=== PATIENT | male | born 1950 | race Caucasian/White ===

== ENCOUNTER 2024-12-27 12:38 | Outpatient (CLI) | payer MEDICARE, SELFPAY ==
--- OUTSIDE RECORDS SUMMARY | 2024-12-27 12:43 | XMS_ITS | Clinical Summary ---
Author Organization [facility] [employer] Address [address] [place] [address] Care Team Providers Care Family Court Counsellor Name Role Phone Misael Singh MD Primary Care Provide r Source Comments [facility] [employer],non-owned Affiliates and Associated Physician Practices is amultiple site organization consisting of ambulatory clinics and hospital sitesin [place], [place], [place] and [place]. This disclosure is being madepursuant to the Care Everywhere program and may not contain all information available regarding this patient. Last updated 18.[facility] [employer] Allergies No known active allergies Medications * Be aware that medications may not be up to date on this document. Alwaysverify current medications with the patient. esomeprazole (NEXIUM) 40 MG capsule Take 40 mg by mouth daily before breakfast Active levothyroxine (SYNTHROID) 125 MCG tablet Take 125 mcg by mouth daily before breakfast Active Active Problems Problem Noted Date Diagnosed Date GERD (gastroesophageal reflux disease) 5 Social History Tobacco Use Types Packs/Day Years Used Date Smoking Tobacco: Former Cigarettes Q uit: 05/05/2002 Smokeless Tobacco: Never Alcohol Use Standard Drinks/Week Comments Yes 0 (1 standard drink = 0.6 oz pur e alcohol) moderately Sex and Gender Information Value Date Recorded Sex Assigned at Not on file Legal Sex Male 2:02 PM CDT Gender Identity Not on file Sexual Orientation Not on file Last Filed Vital Signs Vital Sign Reading Time Taken Comments Blood Pressure 136/89 01/03/2015 2:37 PM CDT Pulse 64 01/03/2015 2:38 PM CDT Temperature 36.7 C (98 F) 01/03/2015 12:44 PM CDT Respiratory Rate 18 01/03/2015 2:38 PM CDT Oxygen Saturation 91% 01/03/2015 2:38 PM CDT Inhaled Oxygen Concentration - - Weight 88.5 kg (195 lb) 01/03/2015 12:44 PM CDT Height 185.4 cm (6' 1) 01/03/2015 12:44 PM CDT Body Mass Index 25.73 01/03/2015 12:44 PM CDT Plan of Treatment Health Maintenance Due Date Last Done Comments COLOGUARD (AGES 45-75) - COLON CA SCREENING 1950 CT COLONOGRAPHY - COLON CA SCREENING 1950 FIT - COLON CA SCREENING 1950 FLEX SIG - COLON CA SCREENING 1950 LIPID TESTING 1950 HEPATITIS C SCREENING 04/17/1969 DTAP/TDAP/TD VACCINES (1 - Tdap) 1970 PNEUMOCOCCAL VACCINE 50+ (1 of 1 - PCV) 2001 ZOSTER VACCINE (1 of 2) 2001 AAA SCREENING 2016 COLON MONITORING 01/04/2020 01/03/2015, 05/2014, 01/03/2015, Additional history exists Colorectal Cancer Screening 01/04/2020 COVID-19 VACCINE ( - 2023- season) 2024 DEPRESSION SCREENING 05/05/2024 COLONOSCOPY - COLON CA SCREENING 01/03/2025 01/03/2015, 01/03/2015, 01/03/2015, Additional history exists INFLUENZA VACCINE (#1) 2025 Respiratory Syncytial Virus (RSV) Vaccine Pt: or over 60 yrs (1 - 1-dose 75+ series) 2026 HEPATITIS B VACCINE Aged Out No longe r eligible based on patient's age to complete this topic HIB VACCINE Aged Out No longer eligi ble based on patient's age to complete this topic HPV VACCINE Aged Out No longer eligi ble based on patient's age to complete this topic MENINGOCOCCAL (Group B) VACCINE SHARED DECISION-MAKING Aged Out No longer eligible based on patient's age to complete this topic MENINGOCOCCAL GROUPS A/C/Y/W VACCINE Aged Out No longer eligible based on patient's age to complete this topic Procedures Procedure Name Priority Date/Time Associated Diagnosis Comments ENDOSCOPY, COLON, SCREENING Routine 01/03/2015 1:53 PM CDT from Last 3 Months or Most Recently Relevant to Health Maintenance Results * ENDOSCOPY, COLON, SCREENING (01/03/2015 1:53 PM CDT) Report Endoscopy POC _ Patient Name: Elder Beckham Procedure Date: 01/03/2015 1:53 PM Date of : 1950 Admit Type: Outpatient Age: 64 Gender: Male Attending MD: Solomon Dukes MD _ Procedure: Colonoscopy Indications: Screening for colorectal malignant neoplasm Providers: Solomon Dukes MD (Doctor), Vicky Varghese Medicines: Monitored Anesthesia Care Complications: No immediate complications. _ Procedure: Pre-Anesthesia Assessment: - ASA Grade Assessment: II - A patient with mild systemic disease. - Airway Examination: Mallampati Class I (tonsillar pillars visualized). After I obtained informed consent, the scope was passed under direct vision. Throughout the procedure, the patient's blood pressure, pulse, and oxygen saturations were monitored continuously. The Colonoscope was introduced through the anus and advanced to the cecum, identified by appendiceal orifice and ileocecal valve. The colonoscopy was performed without difficulty. The patient tolerated the procedure well. The quality of the bowel preparation was good. Impression: - Diverticulosis. - One 7 mm polyp in the transverse colon. Resected and retrieved. Clips were placed. - One 6 mm polyp in the sigmoid colon. Resected and retrieved. Findings: Diverticula were found in the colon. A sessile polyp was found in the transverse colon. The polyp was 7 mm in size. The polyp was removed with a hot snare. Resection and retrieval were complete. To prevent bleeding post-intervention, two hemostatic clips were successfully placed. There was no bleeding at the end of the maneuver. A sessile polyp was found in the sigmoid colon. The polyp was 6 mm in size. The polyp was removed with a cold biopsy forceps. Resection and retrieval were complete. Estimated blood loss: none. _ Recommendation: - Repeat colonoscopy in 5 years for surveillance based on pathology results. Procedure Code(s): --- Professional --- 55153, Colonoscopy, flexible, proximal to splenic flexure; with removal of tumor(s), polyp(s), or other lesion(s) by snare technique [id number], 59, Colonoscopy, flexible, proximal to splenic flexure; with biopsy, single or multiple --- Technical --- 97277, Colonoscopy, flexible, proximal to splenic flexure; with removal of tumor(s), polyp(s), or other lesion(s) by snare technique [id number], 59, Colonoscopy, flexible, proximal to splenic flexure; with biopsy, single or multiple Diagnosis Code(s): --- Professional --- V76.51, Special screening for malignant neoplasms of colon 211.3, Benign neoplasm of colon 562.10, Diverticulosis of colon (without mention of hemorrhage) --- Technical --- V76.51, Special screening for malignant neoplasms of colon 211.3, Benign neoplasm of colon 562.10, Diverticulosis of colon (without mention of hemorrhage) CPT copyright 2013 [employer]. All rights reserved. The codes documented in this report are preliminary and upon youth care specialist review may be revised to meet current compliance requirements. Solomon Dukes MD 01/03/2015 2:17 PM This report has been signed electronically. Number of Addenda: 0 Note Initiated On: 01/03/2015 1:53 PM [facility] ENDOSCOPY 01/03/2015 1:53 PM CDT us Solomon Dukes MD GI PROCEDURE ORDERABLES Edited R esult - Final HC ENDOSCOPY from Last 3 Months or Most Recently Relevant to Health Maintenance Insurance [address] Care Teams Family Court Counsellor Relationship Specialty Start Date End Date Misael Singh MD PCP - General Family Medicine 10/12/14
--- OUTSIDE RECORDS SUMMARY | 2024-12-27 12:43 | XMS_ITS | Clinical Summary ---
Author Organization [facility] Address [address] [place] [address] Care Team Providers Care Juice Packaging Machines Setter Name Role Phone Francia Garrison DO Primary Care Provider [phone] Allergies No known active allergies Medications levothyroxine 112 MCG tablet Take 112 mcg by mouth every morning. Active esomeprazole 40 MG capsule Take 40 mg by mouth. Active lisinopril 20 MG tablet Take 20 mg by mouth daily. Active Active Problems Problem Noted Date Diagnosed Date Dysphagia 04/09/2021 Overview (04/09/2021): Added automatically from request for surgery [id number] Social History Tobacco Use Types Packs/Day Years Used Date Smoking Tobacco: Former Smokeless Tobacco: Never Comments:Quit 25 years ago Alcohol Use Standard Drinks/Week Comments Not Currently 0 (1 standard drink = 0.6 oz pur e alcohol) Sex and Gender Information Value Date Recorded Sex Assigned at Not on file Legal Sex Male 8:04 PM CDT Gender Identity Not on file Sexual Orientation Not on file Last Filed Vital Signs Vital Sign Reading Time Taken Comments Blood Pressure 140/81 04/13/2021 1:15 PM MOLD BLOWER Pulse 69 04/13/2021 11:08 AM MOLD BLOWER Temperature 36.3 C (97.4 F) 04/13/2021 1:00 PM MOLD BLOWER Respiratory Rate 16 04/13/2021 1:15 PM MOLD BLOWER Oxygen Saturation 99% 04/13/2021 1:15 PM MOLD BLOWER Inhaled Oxygen Concentration - - Weight 93.4 kg (206 lb) 04/09/2021 9:38 AM MOLD BLOWER Height 185.4 cm (6' 1) 04/09/2021 9:38 AM MOLD BLOWER Body Mass Index 27.18 04/09/2021 9:38 AM MOLD BLOWER Plan of Treatment Health Maintenance Due Date Last Done Comments Hepatitis C 1969 Zoster Vaccines (1 of 2) 2001 Annual Medicare Wellness Visit 2016 Pneumococcal Vaccine: 50+ Years (2 of 2 - PPSV23) 06/04/2018 06/04/2017 COVID-19 Vaccine (3 - 2023-2 5 season) 2024 07/07/2020, 06/13/2020 DTaP, Tdap and Td Vaccines ( 2 - Td or Tdap) 04/03/2025 04/03/2015 RSV Immunization or 60+ Years (1 - 1-dose 75+ series) 2026 Colorectal Cancer Screening Colonoscopy (10 Years) 04/13/2031 04/13/2021 Meningococcal B Vaccine Aged Out No l onger eligible based on patient's age to complete this topic Meningococcal Vaccine Aged Out No osman almaz eligible based on patient's age to complete this topic RSV Immunizations Under 20 Months Aged Out No longer eligible b ased on patient's age to complete this topic Insurance [place] [id number] [facility] Care Teams Juice Packaging Machines Setter Relationship Specialty Start Date End Date Francia Garrison DO PCP - General FAMILY PRACTICE 07/26/20
== END 2024-12-27 12:39 | disposition home or self-care (01) ==
LOC: ANHAUDIO 12:39
PROVIDERS: PCP Nurse Practitioner Family; Visit Provider Nurse Practitioner Family
DX: H90.3 Sensorineural hearing loss, bilateral (principal)
CPT/HCPCS: 92557; 92567